=== PATIENT | male | born 1970 | race Two or more races ===

== ENCOUNTER 2017-03-21 06:52 | Emergency (ER) | payer MEDICARE, OTHER ==
--- NOTE | 2017-03-21 07:34 | ER Document Report ---
HPI - HPI Patient complains to provider of: rib pain Onset: Yesterday Onset/Duration: Sudden, Persistent Quality of pain: Achy Severity: Severe Pain Level: 5 Context: Patient presents emergency department with right anterior chest wall pain. Patient reports he was doing [place] when he was on the ground and moved very quickly and started having the pain. He denies being kicked/punched in his ribs. Denies abdominal pain. He denies past medical history of injury to his ribs. Denies other symptoms such as fever vomiting diarrhea. Reports when he coughs or moves the area hurts more. Associated Symptoms: None Exacerbated by: Coughing, Deep breathing Relieved by: Denies Similar symptoms previously: No Recently seen / treated by doctor: No - DERM Skin Color: Normal <JOHN BAKER - Last Filed: 03/21/17 11:09> Past Medical History - General Information source: Patient - Social History Smoking Status: Unknown if Ever Smoked Cigarette use (# per day): No Frequency of alcohol use: None Drug Abuse: None Occupation: retired Lives with: Family Family History: None Patient has suicidal ideation: No Patient has homicidal ideation: No - Past Medical History Cardiac Medical History: Reports: Hx Hypertension Denies: Hx Coronary Artery Disease, Hx Heart Attack Pulmonary Medical History: Denies: Hx Asthma, Hx Bronchitis, Hx COPD, Hx Pneumonia Neurological Medical History: Denies: Hx Cerebrovascular Accident, Hx Seizures Renal/ Medical History: Denies: Hx Peritoneal Dialysis Musculoskeltal Medical History: Reports Hx Arthritis - back - Immunizations Hx Diphtheria, Pertussis, Tetanus Vaccination: Yes <JOHN BAKER - Last Filed: 03/21/17 11:09> Vertical Provider Document - CONSTITUTIONAL Agree With Documented VS: Yes Exam Limitations: No Limitations General Appearance: WD/WN, Mild Distress - winces with deep breath/coughing - INFECTION CONTROL TRAVEL OUTSIDE OF THE [place] IN LAST 30 DAYS: No - HEENT HEENT: Atraumatic, Normocephalic - NECK Neck: Normal Inspection, Supple. negative: Lymphadenopathy-Left, Lymphadenopathy-Right - RESPIRATORY Respiratory: Breath Sounds Normal, No Respiratory Distress O2 Sat by Pulse Oximetry: 98 - CARDIOVASCULAR Cardiovascular: Regular Rate - GI/ABDOMEN Gastrointestinal: Abdomen Soft, Abdomen Non-Tender - BACK Back: Normal Inspection - MUSCULOSKELETAL/EXTREMETIES Musculoskeletal/Extremeties: MAEW - NEURO Level of Consciousness: Awake, Alert, Appropriate Motor/Sensory: No Motor Deficit - DERM Integumentary: Warm, Dry Adult Front & Back Diagram: 1 - reports ttp, increased pain with movement or deep breathing <JOHN BAKER - Last Filed: 03/21/17 11:09> Course - Re-evaluation Re-evalutation: 03/21/17 No obvious signs of trauma. Patient's respiratory rate even and unlabored. Patient instructed on medication. Instructed to follow-up with primary care provider for recheck. Discussed instructed on the importance of coughing and deep breathing. He verbalized understanding to all instructions - Vital Signs Vital signs: Temp Pulse Resp BP Pulse Ox 97.6 F 74 20 132/92 H 98 03/21/17 06:57 03/21/17 06:57 03/21/17 06:57 03/21/17 06:57 03/21/17 06:57 <JOHN BAKER - Last Filed: 03/21/17 11:09> - Vital Signs Vital signs: Temp Pulse Resp BP Pulse Ox 97.4 F 63 16 135/89 H 98 03/21/17 08:35 03/21/17 08:35 03/21/17 08:35 03/21/17 08:35 03/21/17 11:11 <ANNIE RIVERO - Last Filed: 03/26/17 03:46> Discharge <JOHN BAKER - Last Filed: 03/21/17 11:09> <ANNIE RIVERO - Last Filed: 03/26/17 03:46> - Discharge Clinical Impression: Chest wall pain, Elevated blood pressure reading Disposition: HOME, SELF-CARE Instructions: Chest Wall Pain ([facility]), Oral Narcotic Medication ([facility]), Anti- Inflammatory Medication ([facility]) Additional Instructions: *You have been evaluated for chest wall pain, elevated blood pressure reading *Take medication as prescribed *Rest/Ice packs to the area * Cough and deep breathe as discussed every hour *Follow up with a primary care provider within one week for recheck *Return to ED for worsening condition, changes, needs, difficulty breathing, concerns Monitor your blood pressure. Your blood pressure was elevated today. This may be because you were anxious, in pain or because you need medication. It is important to follow up with your primary care provider for full evaluation. Prescriptions: Naproxen 500 mg PO BID #20 tablet Oxycodone HCl/Acetaminophen [Percocet 5-325 mg Tablet] 1 - 2 tab PO ASDIR PRN # 15 tablet PRN Reason: Forms: Elevated Blood Pressure, Return to Work Referrals: JAYDE ALVAREZ MD [Primary Care Provider] - Follow up in 1 week
[2017-03-21] MEDS ORDERED: OXYCODONE-ACETAMINOPHEN 5-325 MG TABLET PO ONE (07:50)
--- NOTE | 2017-03-21 08:15 | RADIOLOGY REPORT (SQ) ---
EXAM DESCRIPTION: RIBS RIGHT W/PA CHEST COMPLETED DATE/TIME: 03/21/2017 8:02 am REASON FOR STUDY: injury COMPARISON: None. TECHNIQUE: Frontal view of the chest and additional views of the right ribs acquired. NUMBER OF VIEWS: Four views LIMITATIONS: None. FINDINGS: FRONTAL CXR: No pneumothorax. No pleural effusion. No atelectasis or infiltrates. RIBS: No displaced rib fractures. No lytic or blastic bony lesions. OTHER: No other significant finding. IMPRESSION: NO PNEUMOTHORAX. NO DISPLACED RIB FRACTURES. COMMENT: SITE OF TRAUMA/COMPLAINT MARKED/STAMP COMPLETED: Yes TECHNICAL DOCUMENTATION: JOB ID: [id number] [employer]- All Rights Reserved
[2017-03-21 08:48] VITALS: BP 135/89
== END 2017-03-21 08:37 | disposition home or self-care (01) ==
LOC: ER 06:52
DX: R07.89 Other chest pain (principal); I10 Essential (primary) hypertension
CPT/HCPCS: 99283; 71101; A9270

== ENCOUNTER → 2017-12-06 | Outpatient (CLI) | payer MEDICARE, OTHER ==
--- NOTE | 2017-12-08 14:52 | RADIOLOGY REPORT (SQ) ---
EXAM DESCRIPTION: MRI LUMBAR SPINE WITHOUT COMPLETED DATE/TIME: 12/06/2017 8:10 pm REASON FOR STUDY: LUMBOSACRAL RADICULOPATHY M54.17 RADICULOPATHY, LUMBOSACRAL REGION COMPARISON: None. TECHNIQUE: Sagittal and Axial imaging includes T1, T2, STIR and gradient echo sequences. Coronal T2/ HASTE imaging. LIMITATIONS: None. FINDINGS: VISUALIZED UPPER ABDOMEN: Limited evaluation. No acute or suspicious findings suggested. SEGMENTATION: No transitional anatomy. The lowest well-developed disc space is labeled L5-S1. ALIGNMENT: Anatomic. VERTEBRAE: Intact. BONE MARROW: Reactive endplate changes L4-5. DISC SIGNAL: Loss of T2 signal L3-4. POSTERIOR ELEMENTS: Generally intact. No pars defect evident. HARDWARE: None in the spine. CORD AND CONUS: Normal in size and signal intensity. Conus at the appropriate level. SOFT TISSUES: No aortic aneurysm seen. No bulky retroperitoneal adenopathy or mass. No paraspinal mas s or fluid. L1-L2: No significant spinal stenosis or exit foraminal stenosis. L2-L3: No significant spinal stenosis or exit foraminal stenosis. L3-L4: Disc bulge with central extrusion. Disc material extends inferiorly along the L4 vertebral marisa dy. Flattening of the intrathecal. Mild narrowing of the exit foramina. L4-L5: Generalized disc bulge with a more focal central component. Facet and ligamentous hypertrophy . Moderate narrowing of foramina. L5-S1: No significant spinal stenosis or exit foraminal stenosis. LOWER THORACIC: Incompletely imaged. No stenosis seen. SACRUM: Visualized upper sacrum intact. OTHER: No other significant findings. IMPRESSION: L3-4 with central disc extrusion. Mild narrowing of the exit foramina and central canal stenosis secondary to the disc extrusion. L4-5 with disc bulge. Ligamentous and facet hypertrophy. Moderate narrowing of the exit foramina. TECHNICAL DOCUMENTATION: JOB ID: [id number] [employer]- All Rights Reserved Reading location - IP/workstation name: [email or web address]
== END ==
LOC: RAD 17:56
PROVIDERS: ATTEND Pain Medicine Pain Medicine
DX: M54.17 Radiculopathy, lumbosacral region (principal)
CPT/HCPCS: 72148

== ENCOUNTER → 2018-02-21 | Outpatient (CLI) | payer MEDICARE, OTHER ==
--- NOTE | 2018-02-21 10:13 | RADIOLOGY REPORT (SQ) ---
EXAM DESCRIPTION: FOOT LEFT COMPLETE COMPLETED DATE/TIME: 02/21/2018 9:45 am REASON FOR STUDY: PAIN IN LEFT FOOT (M79.672) M79.672 PAIN IN LEFT FOOT COMPARISON: None. NUMBER OF VIEWS: Three views. TECHNIQUE: AP, lateral and oblique radiographic images acquired of the left foot. LIMITATIONS: None. FINDINGS: MINERALIZATION: Normal. BONES: Nondisplaced fractures of the proximal 2nd, 3rd and 4th metatarsal shafts. JOINTS: Lisfranc joints are intact. SOFT TISSUES: No soft tissue swelling. No foreign body. OTHER: No other significant finding. IMPRESSION: Stress fractures of the proximal 2nd, 3rd and 4th metatarsals. TECHNICAL DOCUMENTATION: JOB ID: [id number] [employer]- All Rights Reserved Reading location - IP/workstation name: Unknown
== END ==
LOC: RAD 09:18
PROVIDERS: ATTEND Physician Assistant
DX: M79.672 Pain in left foot (principal)